=== PATIENT | female | born 1985 | race African-American/Black ===

== ENCOUNTER 2018-09-03 07:51 | Inpatient (IN) ==
[2018-09-03] MEDS ORDERED: LACTATED RINGERS 1,000 ML IV ONE (09:01)
[2018-09-03] MEDS ORDERED: CITRIC ACID/SODIUM CITRATE 30 ML UDCUP PO ONE (10:16)
[2018-09-03] MEDS ORDERED: FAMOTIDINE 20 MG/2 ML VIAL IV ONE (10:16)
[2018-09-03] MEDS ORDERED: ceFAZolin 2,000 MG in PREMIX 1 EACH IV ONE (10:16)
[2018-09-03] MEDS ORDERED: LACTATED RINGERS 1,000 ML IV SCH ×2 (10:30→13:00)
[2018-09-03 10:41] LABS: Basophils % 0.2 % (0.0-0.8); Eosinophils % 0.5 % (0.00-10.9); Hematocrit 36.8 VOL% (35.7-47.0); Hemoglobin 11.8 GM/DL (12.0-16.0); Immature Granulocytes % 1.1 %; Immature Granulocytes Absolute 0.09 #; Lymphocytes # 1.4 10*3/uL (1.4-4.0); Lymphocytes % 17.5 % (21.3-54.2); Mean Corpuscular HGB Conc 32.1 GM/DL (32-36); Mean Corpuscular Hemoglobin 28 PG (27-34); Mean Platelet Volume 9.7 FL (9.6-12.0); Monocytes # 0.5 10*3/uL (0.11-0.8); Monocytes % 5.7 % (1.7-12.7); Neutrophils # 6.2 10*3/uL (1.4-7.4); Platelet Count 268 T/CUMM (130-400); Red Blood Count 4.23 MC/CUMM (3.8-5.5); Red Cell Distribution Width 13.6 % (9.3-17.3); White Blood Count 8.3 T/CUMM (4-12)
[2018-09-03] MEDS ORDERED: OXYTOCIN 10 UNIT/ML VIAL IM ONE (10:45)
[2018-09-03] MEDS ORDERED: OXYTOCIN/LR 30 UNIT/1,000 ML BAG IV ONE (10:45)
[2018-09-03 12:33] LABS: Cord Arterial Blood HCO3 21.3 MMOL/L
[2018-09-03 12:34] LABS: Cord Venous Blood HCO3 24.7 MMOL/L; Cord Venous Blood PCO2 45.9 MMHG; Cord Venous Blood PO2 29.9 MMHG
[2018-09-03] MEDS ORDERED: ONDANSETRON 4 MG/2 ML VIAL IV PRN (12:48)
[2018-09-03] MEDS ORDERED: ACETAMINOPHEN 325 MG TABLET PO PRN (12:48)
[2018-09-03] MEDS ORDERED: OXYTOCIN/LR 20 UNIT/1,000 ML BAG IV ONE (12:48)
[2018-09-03] MEDS ORDERED: SIMETHICONE CHEW 80 MG TABLET PO PRN (12:48)
[2018-09-03] MEDS ORDERED: RHO(D) IMMUNE GLOBULIN 300 MCG SYRINGE IM ONE (12:48)
[2018-09-03] MEDS ORDERED: ceFAZolin 1,000 MG in SYRINGE 1 EACH IV SCH (13:00)
[2018-09-03 13:14] LABS: Apearance,Urine CLEAR (Clear); Bacteria,Urine Occasional /HPF (Few); Bilirubin,Urine Negative (Negative); Blood, Urine Negative (Negative); Glucose,Urine (UA) Negative (Negative); Ketones,Urine 5 mg/dL (Negative); Nitrite,Urine Negative (Negative); Protein,Urine Negative; RBC,Urine <1 /HPF (0-4); Squamous Epithelial Cell,Urine Occasional /HPF (0-10); Urine Color Colorless (Yellow); Urine Specific Gravity 1.004 (1.001-1.035); Urine Urobilinogen < 2.0 EU/DL (0.2-1.0); WBC,Urine <1 /HPF (0-6)
[2018-09-03] MEDS ORDERED: PHENYLEPHRINE 1 MG/10 ML SYRINGE IV ONE (14:24)
[2018-09-03] MEDS ORDERED: ePHEDrine 50 MG/ML AMP ONE (14:25)
[2018-09-03] MEDS ORDERED: fentaNYL 100 MCG/2 ML VIAL ONE (14:25)
[2018-09-03] MEDS ORDERED: MORPHINE 10 MG/10 ML VIAL ONE (14:27)
[2018-09-03] MEDS ORDERED: BUPIVACAINE SPINAL 0.75% 2 ML AMP SPINAL ONE (14:29)
[2018-09-03] MEDS ORDERED: MEPERIDINE 25 MG/1 ML VIAL IV PRN (18:29)
[2018-09-03 20:07] LABS: Basophils % 0.1 % (0.0-0.8); Eosinophils % 0.2 % (0.00-10.9); Hematocrit 34.9 VOL% (35.7-47.0); Hemoglobin 11.2 GM/DL (12.0-16.0); Immature Granulocytes % 0.5 %; Immature Granulocytes Absolute 0.04 #; Lymphocytes # 1.2 10*3/uL (1.4-4.0); Lymphocytes % 13.2 % (21.3-54.2); Mean Corpuscular HGB Conc 32.1 GM/DL (32-36); Mean Corpuscular Hemoglobin 28 PG (27-34); Mean Corpuscular Volume 86.6 FL (87-102); Mean Platelet Volume 9.7 FL (9.6-12.0); Monocytes # 0.5 10*3/uL (0.11-0.8); Monocytes % 5.5 % (1.7-12.7); Neutrophils # 7.1 10*3/uL (1.4-7.4); Neutrophils % 80.5 % (38.7-73.9); Platelet Count 240 T/CUMM (130-400); Red Blood Count 4.03 MC/CUMM (3.8-5.5); Red Cell Distribution Width 13.6 % (9.3-17.3); White Blood Count 8.8 T/CUMM (4-12)
[2018-09-03] MEDS: DOCUSATE SODIUM 100 MG CAPSULE PO SCH (23:54)
[2018-09-03] MEDS: ceFAZolin 1,000 MG in SYRINGE 1 EACH IV SCH (23:55)
[2018-09-04] MEDS: IBUPROFEN 800 MG TABLET PO PRN ×2 (01:44→14:49)
[2018-09-04 05:01] LABS: Basophils % 0.2 % (0.0-0.8); Eosinophils % 0.5 % (0.00-10.9); Hematocrit 31.3 VOL% (35.7-47.0); Hemoglobin 10.2 GM/DL (12.0-16.0); Immature Granulocytes % 0.5 %; Immature Granulocytes Absolute 0.04 #; Lymphocytes # 1.3 10*3/uL (1.4-4.0); Lymphocytes % 15.5 % (21.3-54.2); Mean Corpuscular HGB Conc 32.6 GM/DL (32-36); Mean Corpuscular Hemoglobin 28 PG (27-34); Mean Platelet Volume 9.5 FL (9.6-12.0); Monocytes # 0.6 10*3/uL (0.11-0.8); Monocytes % 6.9 % (1.7-12.7); Neutrophils # 6.4 10*3/uL (1.4-7.4); Neutrophils % 76.4 % (38.7-73.9); Platelet Count 214 T/CUMM (130-400); Red Blood Count 3.64 MC/CUMM (3.8-5.5); Red Cell Distribution Width 13.5 % (9.3-17.3); White Blood Count 8.3 T/CUMM (4-12)
[2018-09-04] MEDS ORDERED: ceFAZolin 1,000 MG in SYRINGE 1 EACH IV SCH (08:30)
[2018-09-04] MEDS ORDERED: METOCLOPRAMIDE 10 MG/2 ML VIAL IV SCH (09:00)
[2018-09-04] MEDS: ceFAZolin 1,000 MG in SYRINGE 1 EACH IV SCH (09:37)
[2018-09-04] MEDS: DOCUSATE SODIUM 100 MG CAPSULE PO SCH ×2 (09:39→20:22)
[2018-09-04] MEDS: MULTIVITAMIN (PRENATAL) TABLET PO SCH (09:39)
[2018-09-04] MEDS ORDERED: METOCLOPRAMIDE 10 MG TABLET PO SCH (12:00)
[2018-09-04] MEDS: MAGNESIUM HYDROXIDE SUSP 30 ML UDCUP PO PRN (19:41)
[2018-09-05] MEDS: METOCLOPRAMIDE 10 MG TABLET PO SCH ×4 (02:13→20:17)
[2018-09-05] MEDS: DOCUSATE SODIUM 100 MG CAPSULE PO SCH ×2 (08:34→20:16)
[2018-09-05] MEDS: MAGNESIUM HYDROXIDE SUSP 30 ML UDCUP PO PRN ×2 (08:34→20:16)
[2018-09-05] MEDS: MULTIVITAMIN (PRENATAL) TABLET PO SCH (08:36)
[2018-09-05] MEDS: IBUPROFEN 800 MG TABLET PO PRN ×2 (11:29→20:21)
[2018-09-06] MEDS: METOCLOPRAMIDE 10 MG TABLET PO SCH ×2 (02:18→09:48)
[2018-09-06 07:30] VITALS: BP 114/63
[2018-09-06] MEDS: MULTIVITAMIN (PRENATAL) TABLET PO SCH (09:48)
[2018-09-06] MEDS: DOCUSATE SODIUM 100 MG CAPSULE PO SCH (09:48)
[2018-09-06] MEDS ORDERED: DIPH/TET/ACEL PERT BOOSTER VACCINE 0.5 ML VIAL IM ONE (10:06)
== END 2018-09-06 11:50 | disposition home or self-care (01) | DRG 540 ==
LOC: N.LDOUT 07:51 → N.LD 07:54 → N.OB 17:20
PROVIDERS: ADMIT Obstetrics & Gynecology; ATTEND Obstetrics & Gynecology
PROC: LDCSECT (ICD-10-PCS; 2018-09-03 11:00)